=== PATIENT | male | born 1955 | race Caucasian/White ===

== ENCOUNTER → 2017-09-18 | Outpatient (CLI) | payer SELFPAY ==
--- NOTE | 2017-09-21 08:53 | CT ---
HISTORY: Screening, hypertension, orthopedic surgery Cardiac calcium scoring. Technique: Multiple axial images of the chest were obtained on a [address] from the aortic arch to the base of the heart with noncontrast prospective gating. AEC was utilized. Findings: A total calcium score of 153 is observed. The patient is between the 50 and 75th percentile for age and sex with definite, at least moderate, atherosclerotic plaque present and mild coronary disease hi ghly likely with significant narrowings possible. Focal dense calcified plaque is noted within the p roximal LAD and left circumflex. There are calcified hilar and mediastinal lymph nodes compatible with previous granulomatous disease with multiple calcified pulmonary granulomas as well. Thoracic spondylosis is noted. IMPRESSION: Elevated coronary calcium score as above. Reported By:
== END ==
LOC: RAD 13:05
PROVIDERS: ATTEND Nurse Practitioner Family
DX: Z13.6 Encounter for screening for cardiovascular disorders (principal)